=== PATIENT | female | born 1965 | race Caucasian/White ===

== ENCOUNTER → 2021-07-02 | Day surgery (SDC) | payer OTHER ==
[~2021-07-02] MED LIST: BUSPIRONE HCL PO; CELEBREX100 MG PO; CYCLOBENZAPRINE10 MG PO; DEXAMETHASONE PHOS 24 MG/ML 10ML VIAL ONE; ESTRADIOL1 MG PO; HYDROCODON-ACE1 EA11 PO; IBUPROFEN 800MG/ 200ML 200 ML IV ONE; METOPROLOL TART25 MG PO; OFLOXACIN 0.3% (OTIC SOL) 5 ML BTL ONE; QUETIAPINE FUM200 M1 PO; SYNTHROID100 MCG PO; UNK CHOLESTEROL MED PO
[2021-07-02 09:45] VITALS: BP 155/92
== END | disposition home or self-care (01) ==
LOC: OR 05:21
PROVIDERS: ATTEND Otolaryngology Otolaryngology/Facial Plastic Surgery
DX: H66.93 Otitis media, unspecified, bilateral (principal); H72.92 Unspecified perforation of tympanic membrane, left ear; I10 Essential (primary) hypertension; H90.3 Sensorineural hearing loss, bilateral; H93.13 Tinnitus, bilateral; M54.5 Low back pain; Z88.6 Allergy status to analgesic agent; Z88.0 Allergy status to penicillin; Z01.810 Encounter for preprocedural cardiovascular examination; Z20.822 Contact with and (suspected) exposure to COVID-19
CPT/HCPCS: 69436; 93005; U0002